=== PATIENT | female | born 1960 | race Asian ===

== ENCOUNTER 2022-10-11 19:10 | Emergency (ER) | payer OTHER ==
[2022-10-11] MEDS ORDERED: THROMBIN (BOVINE) 5,000 UNIT VIAL TP ONE (19:31)
[2022-10-11 19:37] VITALS: RESP 18; TEMP 97.6; BMI 26.2
[2022-10-11 19:40] VITALS: BP 156/85; PULSE 63
[2022-10-11] MEDS ORDERED: DIPHTH,PERTUSS(ACELL),TET 0.5 ML DISP.SYRIN IM ONE (20:29)
[2022-10-11] MEDS ORDERED: CEPHALEXIN MONOHYDRATE 500 MG CAPSULE (UD) PO ONE (20:29)
[2022-10-11] MEDS ORDERED: CEPHALEXIN MONOHYDRATE 500 MG CAPSULE (UD) ONE (20:30)
[2022-10-11] MEDS ORDERED: TETANUS AND DIPHTHERIA TOXOID 0.5 ML DISP.SYRIN IM ONE (20:30)
== END 2022-10-11 21:09 | disposition home or self-care (01) ==
LOC: FER 19:10
PROC: 3E0234Z Introduction of Serum, Toxoid and Vaccine into Muscle, Percutaneous Approach (ICD-10-PCS; principal; 2022-10-11)
PROC: 0HQ1XZZ Repair Face Skin, External Approach (ICD-10-PCS; 2022-10-11)
DX: S01.81XA Laceration without foreign body of other part of head, initial encounter (principal); S40.811A Abrasion of right upper arm, initial encounter; S80.211A Abrasion, right knee, initial encounter; W54.1XXA Struck by dog, initial encounter; Y93.K1 Activity, walking an animal
CPT/HCPCS: 12013; 90471; 90715; 99283-25